=== PATIENT | female | born 1985 | race Caucasian/White ===

== ENCOUNTER 2016-05-12 12:44 | Inpatient (IN) | payer MEDICAID, OTHER ==
[2016-05-12] MEDS ORDERED: Ondansetron ODT TAB* 4 MG PO ONE (15:17)
[2016-05-12] MEDS ORDERED: Ondansetron ODT TAB* 4 MG PO PRN (15:29)
[2016-05-12] MEDS ORDERED: Ondansetron ODT TAB* 4 MG ONE (16:06)
[2016-05-12] MEDS ORDERED: diPHENhydraMINE PO* 50 MG PO PRN (16:10)
[2016-05-12] MEDS ORDERED: Ondansetron INJ* 2 MG/ML VIAL IV ONE (16:13)
[2016-05-12] MEDS ORDERED: OBEPIDURAL* 250 ML ONE (19:41)
[2016-05-12] MEDS ORDERED: Famotidine TAB* 20 MG PO PRN (20:14)
[2016-05-12] MEDS ORDERED: Sodium Citrate/Citric Acid* 15 ML UDC PO PRN (20:14)
[2016-05-12] MEDS ORDERED: Phenylephrine IV* 40 MCG/ML 10 ML SYRINGE IV PUSH PRN (20:14)
[2016-05-13] MEDS ORDERED: Mineral Oil Sterile, TOPICAL* 25 ML BTL ONE (01:45)
[2016-05-13] MEDS ORDERED: Acetaminophen TAB* 325 MG ONE (02:00)
[2016-05-13] MEDS ORDERED: Acetaminophen TAB* 325 MG PO PRN (03:20)
[2016-05-13] MEDS ORDERED: Glycerin ADULT SUPP PR PRN (03:20)
[2016-05-13] MEDS ORDERED: Dibucaine 1% 28.35 GM TUBE PR PRN (03:20)
[2016-05-13] MEDS ORDERED: Witch Hazel PAD* JAR TOPICAL PRN (03:20)
[2016-05-13] MEDS: Ibuprofen TAB* 600 MG PO PRN ×3 (09:42→22:03)
[2016-05-13] MEDS: Docusate CAP* 100 MG PO SCH ×3 (09:42→19:42)
[2016-05-13] MEDS: OBEPIDURAL* 250 ML EPIDURAL SCH ×2 (19:09→20:18)
[2016-05-13] MEDS: Simethicone TAB* 80 MG TAB.CHEW PO SCH (19:12)
[2016-05-14 08:19] LABS: Hematocrit 33 % (35-47); Hemoglobin 10.7 g/dl (12.0-16.0); Mean Corpuscular HGB Conc 33 g/dl (31-36); Mean Corpuscular Hemoglobin 30 pg (27-31); Mean Corpuscular Volume 90 fL (80-97); Mean Platelet Volume 7 um3 (7.4-10.4); Red Blood Count 3.61 10^6/ul (4.0-5.4); Red Cell Distribution Width 13 % (10.5-15); White Blood Count 18.9 10^3/ul (3.5-10.8)
[2016-05-14] MEDS: Docusate CAP* 100 MG PO SCH ×3 (08:51→21:08)
[2016-05-14] MEDS ORDERED: Ferrous Gluconate TAB* 324 MG TAB PO SCH (09:00)
[2016-05-14] MEDS: Ibuprofen TAB* 600 MG PO PRN ×2 (11:53→21:08)
[2016-05-15 08:38] VITALS: BP 117/83
== END 2016-05-15 12:04 | disposition home or self-care (01) | DRG 560 ==
LOC: MCHOBOUT 12:44 → MCHOB 16:30 → MCHOBOUT 18:34 → MCHOB 18:35
PROVIDERS: ADMIT Midwife; ATTEND Midwife
PROC: 10E0XZZ Delivery of Products of Conception, External Approach (ICD-10-PCS; principal; 2016-05-13)
DX: O80 Encounter for full-term uncomplicated delivery (principal); Z37.0 Single live birth; Z3A.39 39 weeks gestation of pregnancy
CPT/HCPCS: 36415; 85025; A9270-GY

== ENCOUNTER 2019-02-06 01:23 | Inpatient (IN) | payer OTHER ==
[2019-02-06] MEDS ORDERED: Buffered Lidocaine 1% SYRIN* 1 ML/SYRINGE INTRADERM ONE (02:21)
[2019-02-06] MEDS ORDERED: Lactated Ringers 1000 ML Bag* 1,000 ML IV ONE ×2 (02:21→04:35)
--- NOTE | 2019-02-06 02:28 | HP ---
General Information - Reason for Visit pt reported yesterday that she lost her mucus plug and was noted to have irregular mild ctx on NST at OB appt. Pt reports contractions intensified throughout the day and call this AM with ctx q 3-5 minutes. Pt reports +FM and denies VB or LOF. - General Information Maternal Age: 33 Grav: 2 Para: 1 SAB: 0 IEA: 0 Estimated Due Date: 02/19/19 Determined By: Early Ultrasound Gestational Age in Weeks/Days: 38.1 Maternal Blood Type and Rh: O Positive - Results this Serology/RPR Result: Non-Reactive Rubella Result: Immune HBsAg Result: Negative HIV Result: Negative GBS Culture Result: Negative Past Medical History Delivery History: Hx Uncomplicated Vaginal Delivery Pertinent Past Medical History: Non-Contributory Pertinent Past Surgical History: See Records - breast reduction Pertinent Family History: See Records - MGM: lung CA, HTN, high chol; MGF: bladder CA, DM, CVD; great aunts: breast CA - Antepartal Records Antepartal Records: Reviewed, Complicated by: - BMI 31, anemia, polyhydramnios (resolved) Review of Systems Constitutional: Uncomfortable CV Complaint: No Respiratory: Shortness of Breath: No Gastrointestinal: Normal Bowel Movement, Nausea, Vomiting Genitourinary: No Dysuria, No Leaking Fluid, Spotting Musculoskeletal: No Epigastric Pain, Contractions Neurological: No Headache, No Visual Changes Movement: Normal Exam Allergies/Adverse Reactions: Allergies No Known Allergies Allergy (Verified 02/06/19 01:41) T: 98.3, P:80, R:20 - Measurements Height: 5 ft 3 in Weight: 178 lb Weight in lbs: [id number] Body Mass Index (BMI): 31.5 Pre- Weight: 176 lb Weight Gained This : 2 lbs and 0 ozs - Exam Breast: Breast Exam Deferred CVA: No CVA Tenderness Extremities: No Edema Heart: Normal Rhythm/Heart Sounds HEENT: No Significant Findings Lungs: Clear Bilaterally Rectal: Rectal Exam Deferred Reflexes: DTR 2+ Thyroid: No Thyromegaly - Abdominal Exam Abdomen Exam: Non-Tender, Fundal Height Consistent with Dates - Ultrasound/Biophysical Profile Ultrasound Status: Not Done Targeted Exam Findings Estimated Weight: 8 lbs Cervical Exam: 6cm Effacement: 90% Station: -1 Presenting Part: Vertex Membrane Status: Bulging Bleeding/Discharge: Bloody Show EFM Findings - External Monitor Findings Baseline Heart Rate: 140 External Monitor Findings: Accelerations Present, No Pattern of Variable or Late Decelerations, Variability Moderate, Baseline Stable Contractions: Regular, Moderate, 45-90 Seconds Contraction Frequency: 2-3 Assessment/Plan - Assessment 33 y.o. , 38wks 1d EGA active labor, GBS negative - Plan Plan: Admit - Anticipate Vaginal Delivery - Date/Time of Admission Date of Admission: 02/06/19 Time of Admission: 02:00
[2019-02-06] MEDS ORDERED: Lactated Ringers 1000 ML Bag* 1,000 ML IV SCH ×3 (03:00→08:00)
[2019-02-06] MEDS ORDERED: OBEPIDURAL* 250 ML EPIDURAL ONE (03:06)
[2019-02-06 03:33] LABS: ABS Lymphocytes 2.3 10^3/ul (1.0-4.8); ABS Monocytes 0.9 10^3/ul (0-0.8); ABS Neutrophils 12.1 10^3/ul (1.5-7.7); Eosinophil % 0.1 %; Hematocrit 34 % (35-47); Hemoglobin 11.7 g/dL (12.0-16.0); Lymphocyte % 15.2 %; Mean Corpuscular HGB Conc 34 g/dL (31-36); Mean Corpuscular Hemoglobin 30 pg (27-31); Mean Corpuscular Volume 88 fL (80-97); Mean Platelet Volume 7.1 fL (7.4-10.4); Nucleated Red Blood Cells % 0.1; Platelet Count 490 10^3/uL (150-450); Red Blood Count 3.88 10^6 /uL (3.70-4.87); Red Cell Distribution Width 14 % (10-15); White Blood Count 15.4 10^3/uL (3.5-10.8)
[2019-02-06 03:47] LABS: Urine Benzodiazepine Screen None Detected (None Detect); Urine Opiates Screen None Detected (None Detect)
[2019-02-06] MEDS ORDERED: Phenylephrine 40 MCG/ML SYRINGE IV PUSH PRN ×2 (04:35)
[2019-02-06] MEDS ORDERED: Sodium Citrate/Citric Acid* 15 ML UDC PO PRN (04:35)
[2019-02-06] MEDS ORDERED: Famotidine TAB* 20 MG PO PRN (04:35)
[2019-02-06] MEDS ORDERED: EPHEDrine (Pressors)* 50 MG/ML VIAL IV PUSH PRN ×2 (04:35)
[2019-02-06] MEDS ORDERED: OBEPIDURAL* 250 ML EPIDURAL SCH (05:00)
[2019-02-06] MEDS ORDERED: Oxytocin in LR* 20 UNITS/1,000 ML BAG IVPB ONE (07:28)
[2019-02-06] MEDS ORDERED: Witch Hazel PAD* JAR TOPICAL PRN (07:45)
[2019-02-06] MEDS ORDERED: Dibucaine 1% 28.35 GM TUBE PR PRN (07:45)
[2019-02-06] MEDS ORDERED: Glycerin ADULT SUPP PR PRN (07:45)
--- NOTE | 2019-02-06 07:50 | PROCNOTE ---
[facility] OB: Delivery Note - Delivery A Date of : 02/06/19 Time of : 07:28 Sex: Female Score 1 Minute: 5 Score 5 Minutes: 7 - 10 min : 9 Gestational Age in Weeks and Days at Delivery: 38 Weeks and 1 Days Delivery Method: Spontaneous Vaginal Labor: Spontaneous Amniotic Fluid: Clear Estimated Blood Loss: 250 Anesthesia/Analgesia: CEI for Labor Delivered By: Juliana Jose - Nursery Level of Nursery: Regular/Bedside - Perineum Perineal Injury: Perineal Laceration, 1st Degree Perineal Repair: By Delivering Practioner - Events Delivery Events of Note: Pitocin Only After Delivery
[2019-02-06] MEDS ORDERED: Oxytocin in LR* 20 UNITS/1,000 ML BAG IVPB SCH (08:00)
[2019-02-06] MEDS ORDERED: Simethicone TAB* 80 MG TAB.CHEW PO SCH (08:30)
[2019-02-06] MEDS ORDERED: Influenza VAC *QUAD* 2019-20* 0.5 ML SYRINGE IM ONE (09:00)
[2019-02-06] MEDS: Ibuprofen TAB* 600 MG PO PRN ×2 (09:42→16:13)
[2019-02-06] MEDS: Docusate CAP* 100 MG PO SCH ×3 (09:42→20:45)
[2019-02-06] MEDS ORDERED: Lidocaine 1% INJ* 10 MG/ML 30 ML SDV ONE (10:03)
[2019-02-06] MEDS ORDERED: Phenylephrine 40 MCG/ML SYRINGE ONE (10:07)
[2019-02-06] MEDS: Acetaminophen TAB* 325 MG PO PRN ×2 (12:22→16:12)
[2019-02-07] MEDS: Ibuprofen TAB* 600 MG PO PRN (00:39)
[2019-02-07 06:34] LABS: ABS Basophils 0.1 10^3/ul (0-0.2); ABS Lymphocytes 3.2 10^3/ul (1.0-4.8); ABS Monocytes 0.7 10^3/ul (0-0.8); ABS Neutrophils 6.6 10^3/ul (1.5-7.7); Eosinophil % 0.4 %; Hematocrit 30 % (35-47); Hemoglobin 10.4 g/dL (12.0-16.0); Lymphocyte % 29.8 %; Mean Corpuscular HGB Conc 34 g/dL (31-36); Mean Corpuscular Hemoglobin 30 pg (27-31); Mean Corpuscular Volume 88 fL (80-97); Mean Platelet Volume 6.9 fL (7.4-10.4); Platelet Count 417 10^3/uL (150-450); Red Blood Count 3.45 10^6 /uL (3.70-4.87); Red Cell Distribution Width 14 % (10-15); White Blood Count 10.6 10^3/uL (3.5-10.8)
[2019-02-07 08:42] VITALS: BP 119/74
[2019-02-07] MEDS ORDERED: Ferrous Gluconate TAB* 324 MG TAB PO SCH (09:00)
[2019-02-07] MEDS: Docusate CAP* 100 MG PO SCH (09:05)
== END 2019-02-07 11:45 | disposition home or self-care (01) | DRG 560 ==
LOC: MCHOBOUT 01:23 → MCHOB 01:59
PROVIDERS: ADMIT Midwife; ATTEND Midwife
PROC: 10E0XZZ Delivery of Products of Conception, External Approach (ICD-10-PCS; principal; 2019-02-06)
PROC: 10907ZC Drainage of Amniotic Fluid, Therapeutic from Products of Conception, Via Natural or Artificial Opening (ICD-10-PCS; 2019-02-06)
PROC: 0HQ9XZZ Repair Perineum Skin, External Approach (ICD-10-PCS; 2019-02-06)
PROC: 4A1HXCZ Monitoring of Products of Conception, Cardiac Rate, External Approach (ICD-10-PCS; 2019-02-06)
DX: O70.0 First degree perineal laceration during delivery (principal); Z37.0 Single live birth; Z3A.38 38 weeks gestation of pregnancy; Z88.2 Allergy status to sulfonamides; Z23 Encounter for immunization
CPT/HCPCS: 36415; 80307; 85025; 86850; 86900; 86901; 90686; A9270-GY

== ENCOUNTER 2020-01-11 05:49 | Inpatient (IN) ==
[2020-01-11] MEDS ORDERED: Witch Hazel PAD JAR TOPICAL PRN (07:53)
[2020-01-11] MEDS: Dibucaine 1% OINT 28.35 GM TUBE PR PRN ×2 (08:38→08:39)
[2020-01-11] MEDS: Ondansetron ODT 4 mg TAB 4 MG TAB SL PRN ×2 (12:02→18:11)
[2020-01-12 07:29] VITALS: BP 117/76
[2020-01-12 08:37] LABS: ABS Eosinophils 0.1 10^3/ul (0-0.6); ABS Lymphocytes 2.8 10^3/ul (1.0-4.8); ABS Monocytes 0.5 10^3/ul (0-0.8); ABS Neutrophils 5.3 10^3/ul (1.5-7.7); Eosinophil % 0.7 %; Hematocrit 33 % (35-47); Lymphocyte % 31.7 %; Mean Corpuscular HGB Conc 34 g/dL (31-36); Mean Corpuscular Hemoglobin 30 pg (27-31); Mean Corpuscular Volume 89 fL (80-97); Mean Platelet Volume 7.2 fL (7.4-10.4); Platelet Count 528 10^3/uL (150-450); Red Blood Count 3.64 10^6 /uL (3.70-4.87); Red Cell Distribution Width 13 % (10-15); White Blood Count 8.7 10^3/uL (3.5-10.8)
== END 2020-01-12 11:37 | disposition home or self-care (01) | DRG 560 ==
LOC: MCHOBOUT 05:49 → MCHOB 06:20
PROVIDERS: ADMIT Obstetrics & Gynecology; ATTEND Obstetrics & Gynecology